=== PATIENT | male | born 1950 | race Caucasian/White ===

== ENCOUNTER 2017-01-24 09:31 | Emergency (ER) | payer OTHER ==
[~2017-01-24] VITALS: Ht 172.7 cm; Wt 93.0 kg
[~2017-01-24 09:31] MED LIST: CELEXA20 MG PO; CILOSTAZOL100 M1 PO; CILOSTAZOL100 MG PO; FLEXERIL10 MG PO; FLOMAX0.4 M1 PO; GOOD SENSE ASP325 MG PO; KEY-E400 IU PO; LISINOPRIL2.5 MG PO; LOVASTATIN40 MG PO; MEDROL DOSEPAK1 PAC PO; MOBIC15 MG PO; NAPROXEN500 M1 PO; OXYBUTYNIN5 MG PO; PERCOCET 325 MG1 TA2 PO; PERCOCET 5-3251 EACH PO; TAMSULOSIN HYD0.4 MG PO; VALIUM2 MG PO; VITAMIN E400 UNI4 PO
[2017-01-24 09:34] VITALS: BP 160/70
--- NOTE | 2017-01-24 10:04 | ED NECK/BACK PAIN COMPLAINT ---
History of Present Illness General Chief Complaint: Low Back Pain/Injury Stated Complaint: BACK PAIN Source: patient Exam Limitations: no limitations Vital Signs & Intake/Output Vital Signs & Intake/Output Vital Signs Date Time Temp Pulse Resp B/P Pulse O2 O2 Flow FiO2 Ox Delivery Rate 01/24 0934 97.0 91 14 160/70 99 Room Air Allergies Coded Allergies: NO KNOWN ALLERGIES (NKDA) (08/23/15) Triage Note: 66 Y/O MALE C/O LOWER BACK PAIN SINCE LAST NIGHT; WORSE WITH POSITIONAL CHANGES (EX GOING FROM SITTING TO STANDING AND VISE VERSA). STATES PAIN IS NONRADIATING. REPORTS HX SCIATICA AND THIS FEELS THE SAME. Triage Nurses Notes Reviewed? yes HPI: This patient is a 66-year-old with a past medical history including sciatica who presented to the emergency department today for evaluation of low back pain. The patient reported that yesterday he was moving trees, and over the last 12 hours has had intermittent left lower back pain. The patient reported that the pain is worse with certain movements and gets up to an 8 out of 10. It is sharp and nonradiating. He denied any numbness or tingling in his extremities. He denied any bowel or bladder incontinence. No scalp paresthesia. No abdominal pain, urinary burning, urgency, frequency, blood in the urine. No fevers, chills, chest pain, or difficulty breathing. The patient reported that he was seeing a neurosurgeon for his back problems, but reported that he retired so he came here instead today. (NATA MONTANO,DARLENE) Reconcile Medications Aspirin 325 MG TAB 1 TAB PO DAILY BLOOD (Reported) Cilostazol 100 MG TABLET 1 TAB PO DAILY UNKNOWN (Reported) Cyclobenzaprine HCl 5 MG TABLET 1 TAB PO TIDPRN PRN MUSCLE SPASMS Lisinopril 2.5 MG TAB 1 TAB PO DAILY BP (Reported) Lovastatin 40 MG TAB 1 TAB PO DAILY CHOLESTEROL (Reported) with food Methylprednisolone. (Medrol) 4 MG TAB.DS.PK 1 DP PO AD BACK PAIN 6 on day 1 then reduce by one tablet daily until gone Naproxen (Naprosyn) 500 MG TABLET 1 TAB PO BID PRN PAIN AND INFLAMMATION Tamsulosin HCl (Flomax) 0.4 MG CAP.ER.24H 1 CAP PO DAILY PROSTATE (Reported) Vitamin E Acetate (Vitamin E) 400 UNIT CAPSULE 1 CAP PO DAILY SUPPLEMENT ( Reported) (HIPONA MD,CELSO) Past History Travel History Traveled to [place] past 21 day No Medical History Any Pertinent Medical History? 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 No (DARLENE PEACE PA-C) Review of Systems Review of Systems Constitutional: Reports: no symptoms. Eyes: Reports: no symptoms. Ears, Nose, Throat, Mouth: Reports: no symptoms. Respiratory: Reports: no symptoms. Cardiovascular: Reports: no symptoms. Gastrointestinal/Abdominal: Reports: no symptoms. Musculoskeletal: Reports: see HPI. Skin: Reports: no symptoms. Neurological/Psychological: Reports: no symptoms. All Other Systems: Reviewed and Negative (DARLENE PEACE PA-C) Physical Exam Physical Exam Neck: normal inspection, supple, full range of motion, normal alignment Comments: Well-developed well-nourished person in no acute distress HEENT: Normal EENT exam, head normocephalic, moist mucous membranes PERRLA bilaterally Neck: Supple, no lymphadenopathy Back: Antalgic gait. Negative straight leg raise bilaterally. No midline tenderness. No bony or muscular deformities. Left lumbar paraspinal musculature tenderness to palpation with muscular spasm noted. Range of motion limited due to pain Cardiovascular: Regular rate and rhythm with no murmurs Respiratory: Chest nontender. No respiratory distress. Breath sounds clear to auscultation bilaterally Abdomen: Soft, nontender and nondistended Extremity: No edema, no calf tenderness to palpation, normal and equal pulses. 5 out of 5 muscular strength in all extremities Neuro: Alert oriented x3, motor sensory normal, cranial nerves II through XII grossly intact. Skin: No appreciable rash on exposed skin, skin is warm and dry. Psych: Mood and affect is normal (DARLENE PEACE PA-C) Progress Differential Diagnosis: cauda equina syn, herniated disc, myofascial strain, pyelo/UTI, sciatica, spinal cord inj, T/L spine injury, ureterolithiasis Plan of Care: Current Medications Sig/Pooja Start time Last Medication Dose Stop Time Status Admin Ketorolac 60 MG ONCE ONE 01/24 1000 UNVr Tromethamine 01/24 1001 (Toradol) Departure Departure Disposition: HOME OR SELF CARE Condition: Stable Clinical Impression Primary Impression: Back strain Qualifiers: Encounter type: initial encounter Qualified Code: S39.012A - Strain of muscle, fascia and tendon of lower back, initial encounter Referrals: RUDOLPH FOREMAN,LYNN DAO MD,PADMINI (PCP/Family) Additional Instructions: Take Flexeril as prescribed for muscle relaxation. Take medication for pain as prescribed. Take Medrol Dosepak as directed. Rest and avoid any strenuous activity or heavy lifting. Ice or heat to the affected area as needed. Gentle stretching. UA follow-up with the neurosurgeon whose information has been provided to you in this packet for further evaluation. Please call to schedule a follow-up appointment with your primary care physician. Return for any worsening symptoms or concerns. Departure Forms: Customer Survey General Discharge Information Prescriptions: Current Visit Scripts Methylprednisolone. (Medrol) 1 DP PO AD #1 DP 6 on day 1 then reduce by one tablet daily until gone Naproxen (Naprosyn) 1 TAB PO BID PRN PAIN AND INFLAMMATION #20 TAB Cyclobenzaprine HCl 1 TAB PO TIDPRN PRN MUSCLE SPASMS #12 TAB (DARLENE PEACE PA-C) PA/GLASS SANDER BELT Co-Sign Statement Statement: ED Attending supervision documentation- x I saw and evaluated the patient. I have also reviewed all the pertinent lab results and diagnostic results. I agree with the findings and the plan of care as documented in the PA's/GLASS SANDER BELT's documentation. [] I have reviewed the ED Record and agree with the PA's/GLASS SANDER BELT's documentation. [] Additions or exceptions (if any) to the PAs/GLASS SANDER BELT's note and plan are summarized below: [] (JAMES FOREMAN,CELSO)
[2017-01-24] MEDS ORDERED: MEDROL4 M2 PO (10:07)
[2017-01-24] MEDS ORDERED: CYCLOBENZAPRINE5 M2 PO (10:07)
[2017-01-24] MEDS ORDERED: NAPROSYN500 M1 PO (10:07)
== END 2017-01-24 10:11 ==
LOC: ERH 09:31
DX: S39.012A Strain of muscle, fascia and tendon of lower back, initial encounter (principal); X50.9XXA Other and unspecified overexertion or strenuous movements or postures, initial encounter; Y93.89 Activity, other specified; Y92.9 Unspecified place or not applicable
CPT/HCPCS: 96372; J1885